=== PATIENT | male | born 1930 | race Caucasian/White ===

== ENCOUNTER 2021-06-08 17:25 | Emergency (ER) | payer OTHER ==
[~2021-06-08] VITALS: Ht 170.2 cm; Wt 59.0 kg
[2021-06-08 18:33] LABS: BASOPHILS ABSOLUTE AUTO 0.01 K/mm3 (0.00-0.23); BASOPHILS PERCENT AUTO 0 % (0-2); EOSINOPHILS ABSOLUTE AUTO 0.02 K/mm3 (0.00-0.68); EOSINOPHILS PERCENT AUTO 0 % (0-6); Hemoglobin 9.7 g/dL (13.5-17.5); IMMATURE GRAN ABSOLUTE AUTO 0.03 K/mm3 (0.00-0.10); IMMATURE GRAN PERCENT AUTO 0 % (0-1); LYMPHOCYTES ABSOLUTE AUTO 0.31 K/mm3 (0.84-5.20); LYMPHOCYTES PERCENT AUTO 4 % (21-46); MONOCYTES ABSOLUTE AUTO 0.93 K/mm3 (0.16-1.47); MONOCYTES PERCENT AUTO 13 % (4-13); Mean Corpuscular HGB 30.4 pg (26.0-34.0); Mean Corpuscular HGB Conc 32.3 g/dL (31.5-36.5); Mean Corpuscular Volume 94 fL (80-100); Mean Platelet Volume 9.4 fL (9.1-12.4); NEUTROPHILS ABSOLUTE AUTO 5.81 K/mm3 (1.96-9.15); NEUTROPHILS PERCENT AUTO 82 % (41-73); Platelet Count 119 K/mm3 (150-400); RDW Coefficient Variation 16.6 % (11.7-14.2); RDW Standard Deviation 56.5 fL (35.1-46.3); Red Blood Cell Count 3.19 M/mm3 (4.30-5.90); White Blood Cell Count 7.11 K/mm3 (4.00-11.30)
[2021-06-08 20:01] LABS: Albumin, Blood 3.2 g/dL (3.4-5.0); Albumin/Globulin Ratio 0.9 (0.8-1.8); Bilirubin, Total 1.5 mg/dL (0.1-1.0); Bun/Creatinine Ratio 17.3 (12.0-20.0); Calcium, Blood 8.9 mg/dL (8.5-10.1); Creatinine, Blood 1.33 mg/dL (0.60-1.20); Globulin, Blood 3.7 g/dL (2.2-4.0); Total Protein, Blood 6.9 g/dL (6.4-8.2)
== END 2021-06-08 21:30 | disposition home or self-care (01) ==
LOC: ER 17:25
PROVIDERS: Emergency Medicine
DX: U07.1 COVID-19 (principal); D64.9 Anemia, unspecified; D69.6 Thrombocytopenia, unspecified; I51.7 Cardiomegaly; I27.20 Pulmonary hypertension, unspecified; N28.9 Disorder of kidney and ureter, unspecified
CPT/HCPCS: 71045; 80053; 85025; A9270

== ENCOUNTER 2021-06-10 22:21 | Inpatient (IN) | payer OTHER ==
[~2021-06-10] VITALS: Ht 170.2 cm; Wt 51.9 kg
[2021-06-10 23:24] LABS: Mean Corpuscular HGB 30.4 pg (26.0-34.0); Mean Corpuscular HGB Conc 33.3 g/dL (31.5-36.5); Mean Corpuscular Volume 91 fL (80-100); Mean Platelet Volume 10.4 fL (9.1-12.4); Platelet Count 88 K/mm3 (150-400); RDW Coefficient Variation 16.3 % (11.7-14.2); RDW Standard Deviation 53.7 fL (35.1-46.3); Red Blood Cell Count 2.63 M/mm3 (4.30-5.90); White Blood Cell Count 4.51 K/mm3 (4.00-11.30)
[2021-06-10 23:33] LABS: Albumin, Blood 2.6 g/dL (3.4-5.0); Albumin/Globulin Ratio 0.8 (0.8-1.8); Bilirubin, Total 1.1 mg/dL (0.1-1.0); Bun/Creatinine Ratio 18.9 (12.0-20.0); Calcium, Blood 7.9 mg/dL (8.5-10.1); Creatinine, Blood 1.9 mg/dL (0.60-1.20); Globulin, Blood 3.2 g/dL (2.2-4.0); Potassium, Blood 4.9 mmol/L (3.5-5.5); Total Protein, Blood 5.8 g/dL (6.4-8.2)
[2021-06-11 00:09] LABS: BASOPHILS PERCENT MAN 0 % (0-2); EOSINOPHILS PERCENT MAN 0 % (0-6); LYMPHOCYTES % ATYPICAL MANUAL 1 % (0-0); LYMPHOCYTES PERCENT MAN 8 % (21-46); MONOCYTES ABSOLUTE MAN 0.31 K/mm3 (0.16-1.47); MONOCYTES PERCENT MAN 7 % (4-13); NEUTROPHILS ABSOLUTE MAN 3.78 K/mm3 (1.96-9.15); SEG NEUTROPHILS PERCENT MAN 84 % (41-73); TOTAL CELLS COUNTED 100
[2021-06-11 04:43] LABS: BASOPHILS PERCENT AUTO 0 % (0-2); EOSINOPHILS PERCENT AUTO 0 % (0-6); Hematocrit 26.1 % (37.0-53.0); Hemoglobin 8.5 g/dL (13.5-17.5); Mean Corpuscular HGB 30.6 pg (26.0-34.0); Mean Corpuscular HGB Conc 32.6 g/dL (31.5-36.5); Mean Corpuscular Volume 94 fL (80-100); Mean Platelet Volume 9.8 fL (9.1-12.4); Platelet Count 93 K/mm3 (150-400); RDW Coefficient Variation 16.7 % (11.7-14.2); RDW Standard Deviation 57.1 fL (35.1-46.3); Red Blood Cell Count 2.78 M/mm3 (4.30-5.90); White Blood Cell Count 3.77 K/mm3 (4.00-11.30)
[2021-06-11 04:45] LABS: BASOPHILS ABSOLUTE AUTO 0.01 K/mm3 (0.00-0.23)
[2021-06-11 04:55] LABS: IMMATURE GRAN ABSOLUTE AUTO 0.02 K/mm3 (0.00-0.10); IMMATURE GRAN PERCENT AUTO 1 % (0-1); LYMPHOCYTES ABSOLUTE AUTO 0.47 K/mm3 (0.84-5.20); LYMPHOCYTES PERCENT AUTO 13 % (21-46); MONOCYTES ABSOLUTE AUTO 0.28 K/mm3 (0.16-1.47); MONOCYTES PERCENT AUTO 8 % (4-13); NEUTROPHILS ABSOLUTE AUTO 2.97 K/mm3 (1.96-9.15); NEUTROPHILS PERCENT AUTO 79 % (41-73)
[2021-06-11 05:14] LABS: Albumin, Blood 2.8 g/dL (3.4-5.0); Albumin/Globulin Ratio 0.9 (0.8-1.8); Bilirubin, Total 1.2 mg/dL (0.1-1.0); Bun/Creatinine Ratio 20.5 (12.0-20.0); Calcium, Blood 7.7 mg/dL (8.5-10.1); Creatinine, Blood 1.9 mg/dL (0.60-1.20); Total Protein, Blood 5.8 g/dL (6.4-8.2)
[2021-06-11 05:44] LABS: BASOPHILS PERCENT MAN 0 % (0-2); EOSINOPHILS PERCENT MAN 0 % (0-6); LYMPHOCYTES ABSOLUTE MAN 0.26 K/mm3 (0.84-5.20); LYMPHOCYTES PERCENT MAN 7 % (21-46); MONOCYTES ABSOLUTE MAN 0.15 K/mm3 (0.16-1.47); MONOCYTES PERCENT MAN 4 % (4-13); NEUTROPHILS ABSOLUTE MAN 3.35 K/mm3 (1.96-9.15); SEG NEUTROPHILS PERCENT MAN 89 % (41-73); TOTAL CELLS COUNTED 100
--- NOTE | 2021-06-11 14:19 | NUR ---
Case Conference Note Reviewed chart, discussed case and reviewed plan of care with Primary RN Katya. Pt on BIPAP to assist with pushing fluids off. Pt being diuresed with good results. Called and spoke with family member Breanna who is one of Pt's guardians. She reports Pt recently moved in to [facility]. Pt now has Dementia as he experiences confusion. 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 She also reports Pt has CHF. Discussed Pt's current code status with rBeanna reporting that Full Code does not align with Pt's wishes. Pt completed a POLST with his PCP Nilton Yung for wishes to be DNR. She reports [facility] has a copy on file. Provided update and reviewed plan of care. Breanna expresses appreciation and reports no other concerns at this time. Called and spoke with staff at [facility]. Received copy of POLST via fax. Pt's wishes on POLST are DNR and Comfort Measures Only. Placed DNR order in [facility] per V/O from Dr Badillo. Will deliver copy of POLST to medical records. Palliative Care will remain available.
--- NOTE | 2021-06-11 16:59 | NUR ---
SHIFT NOTE UPON THE BEGINING OF THE SHIFT PT WITH COARSE CRACKLES NOTED T/O LUNG MOODY. DR BAH TO ROOM ORDER WAS OBTAINED FOR LASIX, PT WITH GOOD URINE OUTPUT AND LUNG SOUNDS IMPROVED. PT BEGAN WITH CONTINUES WET COUGH, RT CALLED TO ROOM TO ADDITIONALLY ASSESS PT, DR BAKER GAVE ORDER FOR BIPAP PROTOCOL TO IMPROVE WORK OF BREATHING, PT TOLERATES BIPAP WELL. VSS. PT ALERT, ANSWERS MOST QUESTIONS WELL, BUT FIDGETS IN ROOM. CONDOM CATH HAS BEEN REPLACED X3 TODAY PT CONTINUES TO REMOVE. PT ON CONTINUOUS CAMERA MONITORING. BIPAP 5/10. PT WITH BEDBATH TODAY, LINENS CHANGED NUMEROUS TIMES. PALLIATIVE CARE SPOKE WITH STARR, DECISION WAS MADE TO MAKE PT DNR TODAY.
[2021-06-12 04:16] LABS: Hematocrit 27.4 % (37.0-53.0); Hemoglobin 8.9 g/dL (13.5-17.5); Mean Corpuscular HGB 29.8 pg (26.0-34.0); Mean Corpuscular HGB Conc 32.5 g/dL (31.5-36.5); Mean Corpuscular Volume 92 fL (80-100); Mean Platelet Volume 9.9 fL (9.1-12.4); Platelet Count 78 K/mm3 (150-400); RDW Coefficient Variation 16.2 % (11.7-14.2); RDW Standard Deviation 54.5 fL (35.1-46.3); Red Blood Cell Count 2.99 M/mm3 (4.30-5.90); White Blood Cell Count 5.07 K/mm3 (4.00-11.30)
[2021-06-12 04:31] LABS: Bun/Creatinine Ratio 26.8 (12.0-20.0); Calcium, Blood 7.3 mg/dL (8.5-10.1); Creatinine, Blood 1.83 mg/dL (0.60-1.20); Potassium, Blood 4.4 mmol/L (3.5-5.5)
--- NOTE | 2021-06-12 06:48 | NUR ---
NOC SHIFT SUMMARY - PT ORIENTED X3 OVERNIGHT, UNSURE OF DATE/TIME. PULLING AT LINES/CONDOM CATHETER/TELE. BUSY VEST GIVEN FOR DISTRACTION, REFUSING BIPAP BUT TOLERATING NC @3L W/O2 SATS 95-100%. DENIES PAIN OR DISCOMFORT. VSS PER PT TREND. AFIB ON TELEMETRY. ADEQUATE UOP VIA CONDOM CATHETER. WILL CONTINUE TO MONITOR AND PASS ON TO DAYSHIFT RN.
--- NOTE | 2021-06-12 17:36 | NUR ---
SHIFT NOTE PT ALERT, AGITATED, ATTEMPTING TO EXIT BED T/O THE DAY. PT EAS PLACED INTO IRWIN VEST FOR SAFETY HE WAS CONFUSED AND EXITING BED, PT REMAINS ON CONTINUOUS CAMERA MONITORING. PT REMOVED CONDOM CATH ONCE TODAY, KAHLIL AREA CLEANED, AND NEW CONDOM CATH PLACED. ATTENDS CHANGED. PT IS REDIRECTABLE BUT BECOMES HOSTILE WHEN REDIRECTED. FAMILY UPDATED, FAVIOLA'S HOUSE UPDATED. O2 NEEDS HAVE VARIED TODAY FROM RA TO 3L VIA NASAL CANNULA.
--- NOTE | 2021-06-12 21:55 | NUR ---
UPDATE PHYSICIAN UPDATED ON NS ORDER AT 75 ML/HR. NS NOT RUNNING ONCE ARRIVED ONTO SHIFT. ORDERS FOR NS TO BE DC'D D/T HX OF CHF.
--- NOTE | 2021-06-13 01:08 | NUR ---
UPDATE PT VERY AGGITATED. PULLING AT LINES AND YELLING. PHYSICIAN NOTIFIED. ORDERS FOR ZYPREXA 5 MG IM TO BE GIVEN ONCE.
--- NOTE | 2021-06-13 02:22 | NUR ---
UPDATE PT CONT TO BE AGITATED. PULLING AT LINES, YELLING. PHYSICIAN NOTIFIED. ORDERS FOR HALDOL 3 MG IV Q 6 PRN.
--- NOTE | 2021-06-13 02:57 | NUR ---
UPDATE PHYSICIAN NOTIFIED OF PT'S CONT INCREASE IN AGITATION AND PT HAVING INCREASE IN PVC'S ON MONITOR. ORDERS FOR 1 MG OF ATIVAN NOW. IF PT CONT TO HAVE INCREASE IN AGITATION ORDERS TO GIVE 1 MG OF ATIVAN 15 MIN AFTER INITIAL DOSE.
[2021-06-13 04:12] LABS: Bun/Creatinine Ratio 34.1 (12.0-20.0); Calcium, Blood 7.7 mg/dL (8.5-10.1); Creatinine, Blood 1.73 mg/dL (0.60-1.20); Potassium, Blood 4.4 mmol/L (3.5-5.5)
--- NOTE | 2021-06-13 06:28 | NUR ---
SHIFT SUMMARY\ PT VERY CONFUSED AND AGITATED DURING SHIFT. PULLING AT LINES, YELLING AND UNABLE TO RE-DIRECT. PHYSICIAN NOTIFIED T/O SHIFT. MEDICATED PER PHYSICIAN. ORDERS FOR SOFT BILATERAL WRIST RESTRAINTS ORDERED, IRWIN VEST ORDERED. ATTEMPTED TO TURN PT IN BED Q 2 HRS. PT TOO AGITATED AT TIMES. CONDOM CATH IN PLACE. UNABLE TO PLACE NEW CONDOM CATH FOR UA D/T INCREASE IN PT'S AGITATION DURING SHIFT. OXYGEN SATURATION MAINTAINED ABOVE 92% ON 5 L VIA NC. PHYSICIAN NOTIFIED OF INCREASE IN PVC'S DURING SHIFT. NO CP OR PRESSURE REPORTED. PT ALERT TO SELF ONLY. BP STABLE. HR STABLE. WILL CONT TO MONITOR UNTIL REPORT GIVEN TO DAYSHIFT RN.
--- NOTE | 2021-06-13 10:49 | NUR ---
AM NOTE PT WAS AGITATED THIS AM, DURING BEDSIDE REPORT CONDOM CATHETER NEEDED TO BE REPLACED DUE TO PT PULLING CATHETER OFF. RAHEL RN REPLACED CATHETER. PER REPORT PT BECAME INCREAINGLY AGITATED, SEE EMAR. WHEN THIS NURSE WAS IN ROOM PT WOULD NOT LET NURSE COMPLETE ORAL CARE OR PROVIDE MOUTH SWAB. HE IS NOT ORIENTED AND APPEARS CONFUSED BUT WAS NOT COMBATIVE. BILATERAL SOFT WRIST RESTAINTS AND POSY VEST IN PLACE. SPEECH IS INCOHERENT. HE WILL HAVE EPISODES OF REST AND THEN START TAKING AND MOVING ARMS. WILL CONTINUE TO MONITOR.
[2021-06-13 11:16] LABS: Source, Urine Clean Catch
[2021-06-13 11:21] LABS: Bilirubin, Urine Neg (Neg); Blood, Urine 1+ (Neg); Glucose Qualitative, Urine Neg (Neg); Ketones, Urine Neg (Neg); Leukocyte Esterase, Urine Neg (Neg); Nitrite, Urine Neg (Neg); Protein, Urine 1+ (Neg); Urobilinogen, Urine NORM (Normal)
[2021-06-13 11:30] LABS: Appearance, Urine Clear (Clear); Color, Urine Yellow (P-Yellow)
[2021-06-13 11:31] LABS: Bacteria Rare /hpf; Hyaline Casts 0-2 /lpf (0-2); Red Blood Cells, Urine 0-2 /hpf (0-2); Squamous Epithelial Cells Few /hpf (Few); White Blood Cells, Urine 0-2 /hpf (0-5)
--- NOTE | 2021-06-13 12:21 | NUR ---
CARE NOTE PT HAS APPEARED AGITATED ON AND OFF T/O SHIFT, SWAGE TENDER RN RAHEL REPORTED THAT PT APPEARED MORE CONFUSED AFTER HALODOL ADMINISTRATION. THIS NURES CONSULTED WITH DR. BAH, ORDER FOR ROXANOL GIVEN TO MAKE PT MORE COMFORTABLE. THIS NURSE ALSO CONSOLTED WITH WAREHOUSE INVENTORY CLERK EVELIA ABOUT CONCERNS FOR PT BEING AGITATED AND EVELIA RN AGREED THAT ROXANOL WOULD HELP PT BE MORE COMFORTABLE. PT CONTINUES TO PULL AT LINES AND TUBES IF WITHIN REACH. WILL CONTINUE TO PROTECT LINES, TUBES. THIS NURSE HAS ATTEMPTED TO CALM PT WITH RELAXING MUSIC, REST, AND DIMMED LIGHTS. HE IS TALKING MORE BUT SPEECH IS STILL INCOHERENT. RT CAME AND SUCTIONED PT AND HE SOUNDED MUCH IMPROVED BUT STILL DOES NOT CLEAR SECRETIONS ON HIS OWN. WILL CONTINUE TO MONITOR. LUNCH TRAY WAS HELD DUE TO PT BEING CONFUSED WELL INABILITY TO CLEAR SECRETIONS.
--- NOTE | 2021-06-13 15:30 | NUR ---
CARE NOTE THIS NURSE WAS PROVIDING PATIENT CARE INCLUDING BOOSTING IN BED, WARM BLANKET GIVEN. PT WAS AGITATED AND KEPT SAYING "I WANT MY GUN." ROXENOL GIVEN AND PT APPEARS MORE COMFORTABLE. LIGHTS DIMMED, THERAPEUTIC MUSIC PLAYING. WILL CONITNUE TO MONITOR.
--- NOTE | 2021-06-13 17:28 | NUR ---
VALUABLES NOTE WATCH THAT PT WAS WEARING WAS REMOVED BY THIS NURSE AND PLACED IN LOCKED PT DRAWER OUTSIDE OF PT ROOM. WATCH WAS TIGHT ON PATIENT. WILL ALSO LET COORDINATOR VOLUNTEER SERVICES GABE KNOW.
--- NOTE | 2021-06-13 17:41 | NUR ---
SHIFT ASSESSMENT PT HAS REMAINED ALERT BUT NOT ORIENTED T/O SHIFT. HE IS NOW ABLE TO SPEAK AUDIBLE WORDS LIKE "TAKE THIS OFF" REFERING TO WRIST RESTRAINTS BUT DOES NOT ANSWER QUESTIONS APPROPRIATELY AND APPEARS CONFUSED. HE IS NOW ON ROOM AIR AND SPO2 IS 96-98%. HR HAS RANGED IN 70'S-110'S DURING SHIFT, BLOOD PRESSURE HAS REMAINED STABLE. IV IN RIGHT FOREARM IS INFUSING NS AT 50ML/HR PER EMAR ORDERS. DUE TO PT BEING CONFUSED T/O SHIFT WELL BEING UNABLE TO CLEAR SECRETIONS ON HIS OWN PO INTAKE INCLUDING PO MEDICATIONS WERE HELD. BILATERAL WRIST RESTRAINTS ARE IN PLACE. CONDOM CATHETER IS IN PLACE AND DRAINING WITH GRAVITY LITTLE OUTPUT THAT IS STRAW YELLOW IN COLOR. WILL CONTINUE TO MONITOR UNTIL REPORT GIVEN. CALL LIGHT IN REACH
--- NOTE | 2021-06-14 00:31 | NUR ---
UPDATE PHYSICIAN NOTIFIED OF PT'S 16 BEAT RUN OF VTACH, NO NEW ORDERS AT THIS TIME. PHYSICIAN NOTIFIED PT RETAINING 500 ML OF URINE SHOWN ON BLADDER SCANNER AND PT INABILITY TO VOID, CAUSING PT AGITATION. ORDERS FOR SNOW CATH.
[2021-06-14 00:48] LABS: Source, Urine Foley catheter
[2021-06-14 00:51] LABS: Bilirubin, Urine Neg (Neg); Blood, Urine 1+ (Neg); Glucose Qualitative, Urine Neg (Neg); Ketones, Urine Neg (Neg); Leukocyte Esterase, Urine Neg (Neg); Nitrite, Urine Neg (Neg); Protein, Urine 1+ (Neg); Urobilinogen, Urine NORM (Normal)
[2021-06-14 00:58] LABS: Appearance, Urine Clear (Clear); Color, Urine Yellow (P-Yellow)
[2021-06-14 01:00] LABS: Bacteria Rare /hpf; Red Blood Cells, Urine 0-2 /hpf (0-2); Squamous Epithelial Cells Rare /hpf (Few); White Blood Cells, Urine Not Seen /hpf (0-5)
[2021-06-14 01:01] LABS: Amorphous Light (0-Heavy)
--- NOTE | 2021-06-14 05:26 | NUR ---
SHIFT SUMMARY PT ALERT TO SELF. AGITATED AT TIMES, MOANS AND YELLS AT TIMES. MEDICATED FOR ANXIETY AND AIR HUNGER. PT HAS IRWIN AND SOFT BILATERAL WRIST RESTRAINTS, SEE EHR. TURNED Q 2 HRS. SUCTIONED AND ORAL CARE PROVIDED Q 4 AND NEEDED. PT PRODUCING DARK BROWN SPUTUM, PHYSICIAN NOTIFIED. ORDERS FOR SPUTUM SAMPLE, ATTEMPTED TO SUCTION WITH RT FOR SAMPLE, SAMPLE CONTAMINATED WITH UPPER AIRWAY SECRETIONS. PT NOW NPO D/T POSSIBLE ASPIRATION, SPEECH EVAL ORDERED. PT TURNED Q 2 HRS. SNOW INSERTED PER PHYSICIAN ORDER. PT ON CAMERA AND BED ALARM ON FOR SAFETY. OXYGEN SATURATION MAINTAINED ABOVE 92% ON 2 L VIA NC. SNOW PATENT AND DRAINING TO GRAVITY WITH YELLOW URINE. NS GTT RUNNING AT 50 ML/HR. WILL CONT TO MONITOR UNTIL REPORT GIVEN TO DAYSHIFT RN.
--- NOTE | 2021-06-14 09:22 | NUR ---
ASSUMPTION OF CARE: PATIENT HAS BEEN SLEEPING MORE INFORMED BY NIGHT RN. PATIENT IN BILAT SOFT WRIST, AND IRWIN AT THE BEDSIDE, INFUSING [address] NOT ORIENTED AT THIS TIME, CALLS, OUT, CONDOM CATH IN PLACE. SLEEPS INBETWEEN CALLING OUT. DENIES PAIN, OF ANY KIND, POSITIONED FLAT PATIENT TOSSES AND TURNS, CAMERA ON. SPEECH THERAPY TO SEE AND ADV IF TOLERATED. NIGHT RN ENDORSES BROWN SECRETIONS, THAT PATIENT HIMSELF DOES NOT CLEAR. NEW SUCTION CANISTER. RECENT LINEN CHANGE BY NIGHT RN AND DATA MODELING SPECIALIST.
--- NOTE | 2021-06-14 09:25 | NUR ---
UPDATE IN STATUS: PATIENT HAS BEEN SWITCHED TO COMFORT CARE, DC/D TELEMETRY GOING IN SHORTLY TO STOP FLUIDS, AND ACCESS PATIENT AND THEIR ABILITY TO BE OUT OF RESTRAINTS. BLADDER SCAN DUE TO PATIENT ENDORSING HE HAS TO BE, EVEN THOUGHT CONDOM CATH IN PLACE.
--- NOTE | 2021-06-14 12:52 | NUR ---
Comfort care visit and case conf with pt's bedside RN. Pt sleeping in right sidelying position. RR 20/min. RN has been medicating per eMAR for s/s of increased work of breathing and pt's s/s appear well managed at this time. I did not wake him. He had some agitation during the night and was medicated with haldol per eMAR, which was effective per RN. Pt with valid POLST obtained from [facility] with comfort measures only checked and pt was transitioned to comfort care during the night. Will cont to visit for s/s assessment and support.
--- NOTE | 2021-06-14 16:48 | NUR ---
END OF SHIFT SUMMARY: PATIENT HAS BEEN SLEEPING MOST OF THE DAY. WILL RESPOND TO VERBAL STIMULI. CAN ANSWER IF HAVING PAIN, IS NOT ORIENTED AND HAS NOT IMPROVED SINCE SHIFT. HOWEVER PATIENT HAS BEEN LESS AGITATED TO THE POINT I HAVE DC'D THE RESTRAINTS AT ROUGHLY 1600. PATIENT HAS NEEDED 3 X DOSES OF ROXANOL AND 1 X DOSE OF ATIVAN, PATIENT HAS BEEN REPOSITIONED Q2. BOTH RESTRAINT ORDER AND RESTRAINT DOCUMENTATION HAS BEEN FILED. PATIENT STILL ON 2L VIA NC FOR COMFORT. PATIENT IN NO SIGN OF DISTRESS AT THIS TIME. WILL CONTINUE TO MONITOR AT THIS TIME. SWITCHED FROM DNR TO COMFORT, DC'D TELE, CORTICOSTEROIDS, AND LOVENOX. PATIENT WAS SEEN BY PALLIATIVE AND HOSPICE REFERRAL WAS PLACED BY THE PROVIDER THIS AM.
--- NOTE | 2021-06-14 23:20 | NUR ---
FINAL DISCHARGE/TIME OF PT BECAME VERY AGGITATED AT 2200, PT PULLING AT LINES, MOANING. PT MEDICATED WITH ROXANOL 10MG FOR AIR HUNGER,SEE EMAR. PT'S TIME OF 2222, CONFIRMED WITH MAGDALENA TRACEY RN. NURSING MEDICAL TECHNOLOGIST NOTIFIED, PHYSICIAN NOTIFIED, NEXT OF KIN, TAYLER PINA NOTIFIED. [facility] NOTIFIED PER GUARDIAN REQUEST. PER GUARDIAN, [facility] M[facility] NOTIFIED. PT NOT DONOR CANDIDATE PER DONOR LINE. FINAL DISCHARGE COMPLETE. PT PROVIDED WITH END OF LIFE CARE. WILL UPDATE WHEN MORTUARY SERVICES ARRIVE.
--- NOTE | 2021-06-15 00:02 | NUR ---
[facility], GENEOLGA LEFT WITH PT AT 0000. MORTUARY REP HAS PT BELONGINGS WHICH INCLUDE SHIRT AND WATCH. FACE SHEET GIVEN TO REP UPON TRANFSER OUT OF UNIT.
== END 2021-06-15 | DRG 177 ==
LOC: ER 22:21 → PCU 06-11 01:23 → EDBEDREQ 06-11 02:55 → PCU 06-11 03:48
PROVIDERS: Family Medicine; Internal Medicine; Student in an Organized Health Care Education/Training Program; ADMIT Internal Medicine
PROC: 3E0333Z Introduction of Anti-inflammatory into Peripheral Vein, Percutaneous Approach (ICD-10-PCS; principal; 2021-06-11)
PROC: 5A09357 Assistance with Respiratory Ventilation, Less than 24 Consecutive Hours, Continuous Positive Airway Pressure (ICD-10-PCS; 2021-06-11)
DX: U07.1 COVID-19 (principal); J96.01 Acute respiratory failure with hypoxia; G92.8 Other toxic encephalopathy; N17.9 Acute kidney failure, unspecified; E87.1 Hypo-osmolality and hyponatremia; Z51.5 Encounter for palliative care; Z66 Do not resuscitate; I50.9 Heart failure, unspecified; I48.91 Unspecified atrial fibrillation; D63.8 Anemia in other chronic diseases classified elsewhere; Z78.1 Physical restraint status
CPT/HCPCS: 31720; 36415; 71045; 80048; 80053; 81001; 82947; 85025; 85027; 93005; 93010; 94640; 94660; 94664; 94762; 96374; 97116; 97162; 97165; 97530; 97535; 99285-25; A9270; J0248; J1100; J1630; J1650; J1940; J2060; J7030; J7050